=== PATIENT | male | born 1985 ===

== ENCOUNTER → 2016-10-29 07:51 | Day surgery (SDC) | payer OTHER ==
[~2016-10-29 07:51] MED LIST: Buffered Lidocaine 1% SYR 3ML* 3 ML/SYR SYRINGE INTRADERM ONE; Bupivacaine 0.25% EPI 200,000* 30 ML SDV ONE; Bupivacaine 0.25% SDV* 30 ML ONE; Dexamethasone IV* 4 MG/ML 1 ML (4 MG) IV SLOW PU ONE; Dexamethasone IV* 4 MG/ML 1 ML (4 MG) ONE; Famotidine IV* 10 MG/ML 2 ML (20 mg) IV ONE; Famotidine IV* 10 MG/ML 2 ML (20 mg) ONE; KETAMINE HCL* 50 MG/ML 10 ML VIAL ONE; Ketorolac INJ* 30 MG/ML 1 ML VIAL ONE; Lidocaine 2% PF * 5 ML VIAL ONE; Midazolam* 1 MG/ML 2 ML VIAL (2 MG) ONE; Ondansetron INJ* 2 MG/ML VIAL ONE; PROCHLORPERAZINE INJ 5 MG/ML 2 ML VIAL IV PRN; Phenylephrine IV* 40 MCG/ML 10 ML SYRINGE ONE; Propofol* 10 MG/ML 20 ML BTL IV PUSH ONE; ceFAZolin 2 GM PREMIX (*) 2 GM/50 ML BAG IVPB ONE; fentaNYL* 50 MCG/ML 2 ML VIAL (100 MCG VIAL) IV PRN; fentaNYL* 50 MCG/ML 2 ML VIAL (100 MCG VIAL) ONE; oxyCODONE/Acetamin 5/325 MG* TAB ONE; oxyCODONE/Acetamin 5/325 MG* TAB PO PRN
[2016-10-29 13:56] VITALS: BP 129/80
--- NOTE | 2016-10-31 01:50 | OP ---
DATE OF OPERATION: 10/29/16 [facility] DATE OF : 89 SURGEON: Henrique Rivera MD WOOD FENCE INSTALLER: KATHARINE Lanza. An financial services assistant was needed for the entirety of the case to help positioning, retraction, and was utilized throughout all portions. ANESTHESIOLOGIST: Dr. Corrie Chandra. ANESTHESIA: General PRE-OP DIAGNOSES: Left knee ACL grade 3 rupture and medial meniscal tear. POST-OP DIAGNOSES: Left knee grade 3 ACL rupture, medial femoral condyle osteoarthritis, OCD lesion, medial meniscal tear, lateral meniscal tear. OPERATIVE PROCEDURE: Left knee arthroscopy with ACL reconstruction using allograft, bone tendon bone, partial medial meniscectomy, partial lateral meniscectomy, and chondroplasty of the medial femoral condyle. INDICATIONS: Zacarias Eric is a 31-year-old male who injured his knee many years ago and has since subsequently reinjured his knee over and over again. He has failed conservative management. He complains of daily episodes of instability as well as some medial joint line pain. MRI confirmed the diagnosis. Risks and benefits were discussed at length and he has elected to proceed with surgery. Risks included but are not limited to bleeding, infection , damage to nerves, vessels, surrounding structures, wound nonhealing, persistent pain, need for further surgery, graft failure, worsening arthritis, risk of DVT and risk of anesthesia. He has elected to proceed with surgery. IMPLANTS: Luciano and Nephew SoftSilk screws 8 x 20 times 2. DESCRIPTION OF PROCEDURE: The patient was greeted in the preoperative area by the attending surgeon. Correct extremity was marked. Consent was confirmed. The patient was brought back to the operating suite, where he was placed in the supine position on the operating table. He then underwent general anesthesia and endotracheal intubation, which he tolerated without difficulty. The unsterile tourniquet was placed high on the proximal thigh and a lateral post was placed. Examination of the knee was done. He was found to have range of motion from 0 to 130 degrees. He had a 3B Mitesh, negative posterior drawer, stable to varus and valgus stress, 0 and 30 degrees. After a miniature surgical pause, the knee was intra-articularly injected with 0.25% Marcaine with epi. The left leg was then prepped and draped in the usual sterile fashion beginning with chlorhexidine soap and alcohol wipe and a final prep with ChloraPrep. While the patient was being prepped and draped, the attending surgeon was on the back table preparing the thought allograft, bone patella tendon bone to the size 10 x 22 mm for femoral block and size 10 x 30 mm for the tibial block tunnel. Once this was complete, the surgery began. After appropriate surgical pause indicating side, site, procedure, and administration of antibiotics, the lateral port was made sharply with 11 blade. The scope was introduced through the joint and the joint was examined. Patellofemoral joint had grade 0 to 1 changes. The medial and lateral gutters were without any loose body or any abnormal tissue. There was erythema present ; however, the scope was then brought into the notch and there was evidence of ligamentum, but there was complete absence of the ACL. There was a large stump that was scared to the PCL and one that was acting as a cyclops lesion. The scope was brought into the medial compartment, where there were advanced degenerative changes of the medial femoral condyle with a large unstable flap in the lesion about 13 mm x 17 mm that was full thickness, fully exposed grade 4 lesion. The medial meniscus was very diminutive. The evidence have previously being torn. The unstable flaps were debrided back to stable layer. The tibial plateau had grade 1 to 2 changes. A subtotal meniscectomy was done on the medial side. A microfracture was not done because this was not discussed with the patient prior to and this would have changed the recovery time significantly. The scope was placed in the lateral compartment with the knee in a figure-of-4 position. There was evidence of previous tearing of the lateral meniscus that had healed back and this was parrot-beak type tear, but there was a small unstable flap, therefore the biter and shaver were used to debride the loose frayed tissue and the small unstable flap. The lateral femoral condyle had grade 0 to 1 changes, lateral tibial plateau had grade 0 to 1 changes. The lateral root of the meniscus appeared to be torn but appeared to be peeled back but still seemed to be stable. The patient would probably not comply with nonweightbearing. Therefore, repair was avoided. The knee was placed in 90 degrees. The lateral aspect of the femur was prepared using cautery and the shaver device. An awl was used to marked the starting position for the femoral side. The bone quality was quite poor. Once this was marked and checked by changing the portal through the lateral and medial portals, the attention was directed to the tibial footprint. This was prepared with the shaver and electrocautery device. Tip to tip guide was then used up to 50 degrees. Once this was intended in the skin, a small incision was made. The soft tissues were carefully dissected and the bone was exposed. The guidewire was then drilled to the center of the foot print. This was confirmed arthroscopically. This was then over drilled with a size 10 reamer. All excess bone and debris were removed. The tunnel was examined and found to be completely intact with no breach. Once this was done, the attention was directed to the femoral foot print. A Luciano and NephG-mode straight guide arm was then used to center in the center of the footprint. With the knee in hyperflexion of about 130 degrees, the Beath pin was then drilled to the femoral footprint and came out to the skin at the appropriate position. This was examined by changing the portals over to make sure this was not too anterior and posterior and in an appropriate position. The size 10 low profile reamer was then used to drill this to a depth of about 25 mm for the femoral socket. All excess bone and debris were removed. Again, the bone quality was quite poor. Once the bone and debris were removed with the knee still in hyperflexion, the Beath pin was advanced out to the skin with a #2 Ti-Cron in the tail end, which was then brought through the tibial tunnel in anterior grade fashion for the passing suture. The graft was then brought carefully to the table and passed under arthroscopic visualization. It was found to be well seated into the socket. This was then secured with an 8 x 20 mm screw, which had excellent purchase. The knee was then cycled approximately 15 times to take out any creep from the graft and to make sure it did not dislodge. After this was done, the scope was then brought back into the joint to examine the graft and had not moved. The knee was taken to extension and the graft was found to not impinge. At this point, the scope was removed from the joint. The knee was placed in about 10 degrees of flexion with tension on the tibial sutures in slight posterior drawer. A size 8 x 20 mm SoftSilk screw was then used to secure the tibial bone block. The Mitesh was then obtained. It was found to be stable. Full range of motion was obtained 0 to 130 degrees. The scope was brought back into the joint. The graft was again visualized to be intact. There was no evidence of the screw penetrating. All fluid and debris was removed from the joint. The excess bone block was removed from the tibial wound. The wound was copiously irrigated. Sterile dressings were applied. The knee was intra-articularly injected with 0.25% Marcaine. The knee was placed in a hinged knee brace and he was awoken from anesthesia and transferred to the PACU in stable condition. POSTOPERATIVE PLAN: He will be weightbearing as tolerated. He will be discharged on pain medications and antibiotics. DVT prophylaxis considered, but deferred due to no previous history of DVT or personal or family history. He did have pain medications as already prescribed by previous physician, so we did not prescribe any new prescriptions other than antibiotics. I will see him back in a week. [id number]/[facility] #: [id number] GILMAR
== END | disposition home or self-care (01) ==
LOC: OR 07:51
PROVIDERS: ATTEND Orthopaedic Surgery
DX: S83.512A Sprain of anterior cruciate ligament of left knee, initial encounter (principal); S83.232A Complex tear of medial meniscus, current injury, left knee, initial encounter; S83.282A Other tear of lateral meniscus, current injury, left knee, initial encounter; X50.0XXA Overexertion from strenuous movement or load, initial encounter; Y92.9 Unspecified place or not applicable; F17.210 Nicotine dependence, cigarettes, uncomplicated
CPT/HCPCS: A9270-GY; C1713; C1776; J0690; J1100; J1885; J2250; J2405; J2704; J3010